=== PATIENT | male | born 1995 | race Hispanic/Latino ===

== ENCOUNTER → 2019-02-24 11:27 | Outpatient (CLI) | payer BC, SELFPAY ==
--- NOTE | 2019-02-24 11:31 | DI.RAD.S_ITS ---
PROCEDURE: XR ELBOW LT MIN 3V INDICATIONS: elbow pain TECHNIQUE: 3 views of the elbow were acquired. COMPARISON: None. FINDINGS: Bones: There is mild irregularity along the lateral humeral condyle suggestive of a small avulsion injury of indeterminate acuity. No other definite acute fracture. Soft tissues: No definite elbow joint effusion. There is a small corticated ossicle measuring approximately 6 mm adjacent to the medial aspect of the distal humerus which is nonspecific and may represent sequela of a prior avulsion injury. IMPRESSION: 1. Cortical irregularity along the lateral condyle suggestive of a small avulsion injuries indeterminate acuity. Recommend correlation with clinical exam and history. 2. Elsewhere, no definite acute fracture or dislocation. Dictated by: Phoeinx Gtz M.D. on 02/24/2019 at 11:56 Approved by: Phoenix Gtz M.D. on 02/24/2019 at 12:08
== END ==
PROVIDERS: Visit Provider Physician Assistant
DX: M25.522 Pain in left elbow (principal)
CPT/HCPCS: 73080